=== PATIENT | female | born 1970 ===

== ENCOUNTER 2021-01-19 09:13 | Outpatient (REF) | payer MEDICAID, SELFPAY ==
[2021-01-19 09:30] LABS: Abs Immature Grans 0.01 10^3/uL (0.0-0.06); Absolute Eosinophil Count 0.13 10^3/uL (0.0-0.7); Absolute Lymphocyte Count 2.36 10^3/uL (1.2-3.4); Absolute Monocyte Count 0.52 10^3/uL (0.1-0.8); Absolute Neutrophil Count 4.41 10^3/uL (1.2-6.7); Basophils % 1.3; Eosinophils % 1.7; HGB 14.5 g/dL (11.2-15.7); Immature Grans % 0.1; Lymphocytes % 31.3; MCH 31.6 pg (27.0-33.0); MCHC 33.7 % (32.0-36.0); MCV 93.7 fL (80-95); MPV 12.2 fL (8.0-11.0); Monocytes % 6.9; Neutrophils % 58.7; Nucleated RBC 0 %; Platelet Count 185 10^3/uL (130-400); RBC 4.59 10^6/uL (3.93-5.22); RDW 12.1 % (11.7-14.6); RDW-SD 41.9 fL; WBC 7.53 10^3/uL (4.4-10.8)
[2021-01-19 09:45] LABS: ALT 18 U/L (14-59); AST 6 U/L (15-37); Albumin 3.6 g/dL (3.4-5.0); Alkaline Phosphatase 87 U/L (46-116); Anion Gap 12.8 mmol/L (3-11); BUN 13 mg/dL (7-18); Bilirubin, Total 0.5 mg/dL (0.2-1.0); CO2 24.2 mmol/L (21.0-32.0); CREATININE 1.1 mg/dL (0.55-1.02); Calcium 9.2 mg/dL (8.5-10.1); Chloride 105 mmol/L (98-107); Estimated GFR 52.36 (mL/min/1.73m2); Glucose 118 mg/dL (74-106); Potassium 4.1 mmol/L (3.5-5.1); Sodium 142 mmol/L (136-145)
== END 2021-01-19 09:14 | disposition home or self-care (01) ==
LOC: LBN 09:13
PROVIDERS: Visit Provider Nurse Practitioner Adult Health
DX: C53.1 Malignant neoplasm of exocervix (principal)
CPT/HCPCS: 80053; 83735; 85025

== ENCOUNTER 2021-01-26 15:49 | Outpatient (CLI) | payer MEDICAID, SELFPAY ==
[2021-01-26 11:43] LABS: Abs Immature Grans 0.04 10^3/uL (0.0-0.06); Absolute Basophil Count 0.05 10^3/uL (0.0-0.2); Absolute Eosinophil Count 0.08 10^3/uL (0.0-0.7); Absolute Lymphocyte Count 1.21 10^3/uL (1.2-3.4); Absolute Monocyte Count 0.56 10^3/uL (0.1-0.8); Absolute Neutrophil Count 4.75 10^3/uL (1.2-6.7); Basophils % 0.7; Eosinophils % 1.2; HCT 44.3 % (36.0-46.0); HGB 15.2 g/dL (11.2-15.7); Immature Grans % 0.6; Lymphocytes % 18.1; MCH 31.2 pg (27.0-33.0); MCHC 34.3 % (32.0-36.0); MPV 11.3 fL (8.0-11.0); Monocytes % 8.4; Nucleated RBC 0 %; Platelet Count 215 10^3/uL (130-400); RBC 4.87 10^6/uL (3.93-5.22); RDW-SD 39.9 fL; WBC 6.69 10^3/uL (4.4-10.8)
[2021-01-26 11:55] LABS: ALT 30 U/L (14-59); AST 12 U/L (15-37); Albumin 3.7 g/dL (3.4-5.0); Alkaline Phosphatase 90 U/L (46-116); BUN 12 mg/dL (7-18); Bilirubin, Total 0.5 mg/dL (0.2-1.0); Calcium 9.3 mg/dL (8.5-10.1); Chloride 103 mmol/L (98-107); Estimated GFR 58.45 (mL/min/1.73m2); Glucose 113 mg/dL (74-106); Magnesium 2.1 mg/dL (1.8-2.4); Potassium 3.9 mmol/L (3.5-5.1); Sodium 138 mmol/L (136-145); Total Protein 7.2 g/dL (6.4-8.2)
== END 2021-01-26 15:50 | disposition home or self-care (01) ==
LOC: LBO 15:49
PROVIDERS: Visit Provider Nurse Practitioner Adult Health
DX: C53.1 Malignant neoplasm of exocervix (principal)
CPT/HCPCS: 36415; 80053; 83735; 85025

== ENCOUNTER 2021-02-01 09:10 | Outpatient (CLI) | payer MEDICAID, SELFPAY ==
[2021-02-01 12:39] LABS: Abs Immature Grans 0.03 10^3/uL (0.0-0.06); Absolute Basophil Count 0.02 10^3/uL (0.0-0.2); Absolute Eosinophil Count 0.15 10^3/uL (0.0-0.7); Absolute Lymphocyte Count 0.75 10^3/uL (1.2-3.4); Absolute Neutrophil Count 8.28 10^3/uL (1.2-6.7); Basophils % 0.2; Eosinophils % 1.5; HCT 44.5 % (36.0-46.0); HGB 14.9 g/dL (11.2-15.7); Immature Grans % 0.3; Lymphocytes % 7.6; MCH 31.2 pg (27.0-33.0); MCHC 33.5 % (32.0-36.0); MCV 93.3 fL (80-95); MPV 10.6 fL (8.0-11.0); Monocytes % 6.1; Neutrophils % 84.3; Nucleated RBC 0 %; Platelet Count 164 10^3/uL (130-400); RBC 4.77 10^6/uL (3.93-5.22); RDW 12.2 % (11.7-14.6); RDW-SD 41.9 fL; WBC 9.83 10^3/uL (4.4-10.8)
[2021-02-01 12:54] LABS: ALT 28 U/L (14-59); AST 9 U/L (15-37); Albumin 3.6 g/dL (3.4-5.0); Alkaline Phosphatase 90 U/L (46-116); BUN 10 mg/dL (7-18); Bilirubin, Total 0.7 mg/dL (0.2-1.0); Calcium 9.2 mg/dL (8.5-10.1); Chloride 101 mmol/L (98-107); Estimated GFR 58.45 (mL/min/1.73m2); Glucose 106 mg/dL (74-106); Magnesium 2.1 mg/dL (1.8-2.4); Potassium 4.1 mmol/L (3.5-5.1); Sodium 136 mmol/L (136-145); Total Protein 7.1 g/dL (6.4-8.2)
== END 2021-02-01 09:11 | disposition home or self-care (01) ==
LOC: LBO 02-02 09:11
PROVIDERS: Visit Provider Nurse Practitioner Adult Health
DX: C53.1 Malignant neoplasm of exocervix (principal)
CPT/HCPCS: 36415; 80053; 83735; 85025

== ENCOUNTER 2021-02-07 02:29 | Outpatient (CLI) | payer MEDICAID, SELFPAY ==
[2021-02-07 10:37] LABS: Abs Immature Grans 0.03 10^3/uL (0.0-0.06); Absolute Basophil Count 0.03 10^3/uL (0.0-0.2); Absolute Eosinophil Count 0.32 10^3/uL (0.0-0.7); Absolute Lymphocyte Count 0.57 10^3/uL (1.2-3.4); Absolute Monocyte Count 0.38 10^3/uL (0.1-0.8); Absolute Neutrophil Count 4.93 10^3/uL (1.2-6.7); Basophils % 0.5; Eosinophils % 5.1; HCT 41.8 % (36.0-46.0); HGB 14.1 g/dL (11.2-15.7); Immature Grans % 0.5; Lymphocytes % 9.1; MCH 31.7 pg (27.0-33.0); MCHC 33.7 % (32.0-36.0); MCV 93.9 fL (80-95); MPV 10.4 fL (8.0-11.0); Monocytes % 6.1; Neutrophils % 78.7; Nucleated RBC 0 %; Platelet Count 142 10^3/uL (130-400); RBC 4.45 10^6/uL (3.93-5.22); RDW 12.4 % (11.7-14.6); RDW-SD 41.9 fL; WBC 6.26 10^3/uL (4.4-10.8)
[2021-02-07 10:51] LABS: ALT 21 U/L (14-59); AST 10 U/L (15-37); Albumin 3.5 g/dL (3.4-5.0); Alkaline Phosphatase 77 U/L (46-116); Anion Gap 7.3 mmol/L (3-11); BUN 13 mg/dL (7-18); Bilirubin, Total 0.5 mg/dL (0.2-1.0); CO2 29.7 mmol/L (21.0-32.0); Calcium 9.2 mg/dL (8.5-10.1); Chloride 101 mmol/L (98-107); Estimated GFR 58.45 (mL/min/1.73m2); Glucose 102 mg/dL (74-106); Magnesium 1.7 mg/dL (1.8-2.4); Potassium 3.9 mmol/L (3.5-5.1); Sodium 138 mmol/L (136-145); Total Protein 6.8 g/dL (6.4-8.2)
== END 2021-02-07 02:30 | disposition home or self-care (01) ==
LOC: LBO 02:29
PROVIDERS: Visit Provider Nurse Practitioner Adult Health
DX: C53.1 Malignant neoplasm of exocervix (principal)
CPT/HCPCS: 36415; 80053; 83735; 85025

== ENCOUNTER 2021-02-14 14:52 | Outpatient (CLI) | payer MEDICAID, SELFPAY ==
[2021-02-14 10:49] LABS: Abs Immature Grans 0.02 10^3/uL (0.0-0.06); Absolute Basophil Count 0.03 10^3/uL (0.0-0.2); Absolute Eosinophil Count 0.06 10^3/uL (0.0-0.7); Absolute Lymphocyte Count 0.41 10^3/uL (1.2-3.4); Absolute Monocyte Count 0.25 10^3/uL (0.1-0.8); Absolute Neutrophil Count 3.15 10^3/uL (1.2-6.7); Basophils % 0.8; Eosinophils % 1.5; HGB 12.8 g/dL (11.2-15.7); Immature Grans % 0.5; Lymphocytes % 10.5; MCH 30.5 pg (27.0-33.0); MCHC 32.8 % (32.0-36.0); MCV 92.9 fL (80-95); MPV 9.5 fL (8.0-11.0); Monocytes % 6.4; Neutrophils % 80.3; Nucleated RBC 0 %; Platelet Count 135 10^3/uL (130-400); RDW 12.9 % (11.7-14.6); RDW-SD 41.6 fL; WBC 3.92 10^3/uL (4.4-10.8)
[2021-02-14 10:59] LABS: ALT 20 U/L (14-59); AST 10 U/L (15-37); Albumin 3.5 g/dL (3.4-5.0); Alkaline Phosphatase 67 U/L (46-116); Anion Gap 8.1 mmol/L (3-11); BUN 10 mg/dL (7-18); Bilirubin, Total 0.4 mg/dL (0.2-1.0); CO2 27.9 mmol/L (21.0-32.0); CREATININE 0.9 mg/dL (0.55-1.02); Calcium 8.7 mg/dL (8.5-10.1); Chloride 103 mmol/L (98-107); Glucose 114 mg/dL (74-106); Magnesium 1.5 mg/dL (1.8-2.4); Potassium 3.8 mmol/L (3.5-5.1); Sodium 139 mmol/L (136-145); Total Protein 6.5 g/dL (6.4-8.2)
== END 2021-02-14 14:53 | disposition home or self-care (01) ==
LOC: LBO 14:53
PROVIDERS: Visit Provider Internal Medicine Hematology & Oncology
DX: C53.1 Malignant neoplasm of exocervix (principal)
CPT/HCPCS: 36415; 80053; 83735; 85025

== ENCOUNTER 2021-02-22 18:42 | Outpatient (REF) | payer MEDICAID, SELFPAY ==
[2021-02-22 21:30] LABS: Bilirubin Negative (Negative); Blood Trace-lysed (Negative); Clarity Clear (Clear); Glucose Negative (Negative); Ketones Negative (Negative); Leukocyte Esterase Negative (Negative); Nitrite Negative (Negative); Specific Gravity <= 1.005 (1.005-1.025); Urobilinogen 0.2 EU/dL (Up TO 0.2); pH 6.5 (5-8)
[2021-02-22 21:46] LABS: WBC 0-2 HPF (0-5)
[2021-02-22 21:47] LABS: Bacteria Rare HPF (Negative); C & S Indicated? No; Casts Negative LPF (Negative); Crystals Negative HPF (Negative); Epithelial Cells Rare HPF (Negative); Mucus Negative (Negative)
== END 2021-02-22 18:43 | disposition home or self-care (01) ==
LOC: LBN 18:42
PROVIDERS: Visit Provider Radiology Radiation Oncology
DX: R35.0 Frequency of micturition (principal)
CPT/HCPCS: 81003; 81015